=== PATIENT | male | born 1955 | race Caucasian/White ===

== ENCOUNTER 2017-09-04 17:08 | Emergency (ER) | payer OTHER ==
[~2017-09-04] VITALS: Ht 185.4 cm; Wt 93.4 kg
[~2017-09-04 17:08] MED LIST: CLARITIN10 MG PO; CYANOCOBALAM1000 MCG PO; FLUOXETINE HCL40 MG PO; SAW PALMETTO450 MG PO; SYNTHROID175 MCG PO; VITAMIN D34000 UNIT PO
[2017-09-04 18:01] LABS: HEMATOCRIT 33.7 % (38.0-50.0); HEMOGLOBIN 11.1 G/DL (12.5-16.6); MCH 28.8 PG (29.0-34.0); MCHC 32.9 G/DL (30.0-36.0); MCV 87.3 FL (86-99); PLATELET COUNT 358 K/uL (156-360); RBC DIS.WIDTH-CV 13.8 % (11.8-14.6); RBC DIS.WIDTH-SD 44.2 % (39-53); RED BLOOD COUNT 3.86 M/uL (4.00-5.50); WHITE BLOOD COUNT 8.6 K/uL (4.1-10.2)
[2017-09-04 18:12] LABS: CHLORIDE 107 mEq/L (99-109); POTASSIUM 4.1 mEq/L (3.7-5.4); SODIUM 137 mEq/L (136-147)
[2017-09-04 18:13] LABS: GLUCOSE 97 mg/dL (70-99)
[2017-09-04 18:17] LABS: GFR ESTIMATE (CALCULATED) > 59 mL/min/ (58.99-99999)
[2017-09-04 18:18] LABS: UREA NITROGEN (BUN) 13 mg/dL (9-23)
[2017-09-04] MEDS ORDERED: ELIQUIS5 M1 PO (18:24)
[2017-09-04 18:58] VITALS: BP 144/84
== END 2017-09-04 19:03 | disposition home or self-care (01) ==
LOC: EME 17:08
PROVIDERS: Nurse Practitioner Family
DX: I82.491 Acute embolism and thrombosis of other specified deep vein of right lower extremity (principal); Z87.891 Personal history of nicotine dependence; Z91.041 Radiographic dye allergy status
CPT/HCPCS: 80048; 85027; 99281; 99284

== ENCOUNTER 2017-09-12 15:52 | Emergency (ER) | payer OTHER ==
[~2017-09-12] VITALS: Ht 185.4 cm; Wt 93.8 kg
[~2017-09-12 15:52] MED LIST changes: +ELIQUIS5 M1 PO
[2017-09-12] MEDS ORDERED: MECLIZINE HCL25 MG PO (18:42)
[2017-09-12 19:05] VITALS: BP 143/92
== END 2017-09-12 19:07 | disposition home or self-care (01) ==
LOC: EME 15:52
DX: R42 Dizziness and giddiness (principal); Z86.718 Personal history of other venous thrombosis and embolism; Z87.891 Personal history of nicotine dependence; Z79.01 Long term (current) use of anticoagulants; Z91.041 Radiographic dye allergy status
CPT/HCPCS: 70450; 93005; 99281; 99284; 99285